=== PATIENT | female | born 1985 | race Caucasian/White ===

== ENCOUNTER 2024-11-05 09:28 | Day surgery (SDC) | payer BC ==
[2024-11-05 10:05] VITALS: BP 114/67; TEMP 98
[2024-11-05] MEDS ORDERED: Sodium Bicarbonate 2.5 MEQ/5 ML SDV ONE (10:34)
== END 2024-11-05 12:03 | disposition home or self-care (01) ==
LOC: CSHRAD 09:28
PROVIDERS: ATTEND Nurse Practitioner Family
PROC: B00BYZZ Plain Radiography of Spinal Cord using Other Contrast (ICD-10-PCS; principal; 2024-11-05)
DX: M54.12 Radiculopathy, cervical region (principal)
CPT/HCPCS: 62284; 72126; 77003